=== PATIENT | male | born 1945 | race Two or more races ===

== ENCOUNTER 2020-05-21 07:05 | Inpatient (IN) | payer MEDICARE ==
[~2020-05-21] VITALS: Ht 185.4 cm; Wt 89.8 kg
[2020-05-21] VITALS (13 sets, daily range): BP systolic 119–153; BP diastolic 63–86
[~2020-05-21 07:05] MED LIST: BICALUTAMIDE50 MG ORAL; ceFAZolin sod 1 GM in NS 55 ML IVPB ONE
--- NOTE | 2020-05-21 09:52 | Anethesia Preoperative Eval ---
Anesthesia Pre-op PMH/ROS General Date of Evaluation: May 21, 2020 Time of Evaluation: 10:58 Anesthesiologist: Pablito ASA Score: ASA 3 Mallampati Score Class I : Soft palate, uvula, fauces, pillars visible Class II: Soft palate, uvula, fauces visible Class III: Soft palate, base of uvula visible Class IV: Only hard plate visible Mallampati Classification: Class II Surgeon: Maria Teresa Diagnosis: BPH Surgical Procedure: TURP Anesthesia History: none Family History: no anesthesia problems Allergies: Coded Allergies: No Known Allergies (Unverified , 05/21/20) Medications: see eMAR Patient NPO?: Yes Past Medical History Cardiovascular: Reports: HTN PSxH Narrative: TURP, L Foot Sx Anesthesia Pre-op Phys. Exam Physician Exam Last Vital Signs Date Time Temp Pulse Resp B/P (MAP) Pulse Ox O2 Delivery O2 Flow Rate FiO2 05/21/20 08:28 Room Air 05/21/20 08:24 97.0 74 18 141/72 (95) 96 Constitutional: NAD Neurologic: CN 2-12 intact Cardiovascular: RRR Respiratory: CTA Gastrointestinal: S/NT/ND Airway Exam Mallampati Score: Class II MO: limited ROM: limited Teeth: missing, intact Anesthesia Pre-op A/P Risk Assessment & Plan Assessment: ASA 3 Plan: GA, SED, GlideScope Status Change Before Surgery: No Pre-Antibiotics Dru Gram Ancef IV Given Within 1 Hr of Incision: Yes Time Given: 11:03 Hao Kenney MD May 21, 2020 09:52
[2020-05-21] MEDS ORDERED: oxyCODONE HCL/Acetaminophen 5/325mg ORAL PRN (10:00)
[2020-05-21] MEDS ORDERED: HYDROcodone/Acetamin 7.5/325 tab ORAL PRN (10:00)
[2020-05-21] MEDS ORDERED: Hydromorphone 0.5mg/0.5ml inj IVP PRN (10:00)
[2020-05-21] MEDS ORDERED: Midazolam 2mg/2ml Inj IVP PRN (10:00)
[2020-05-21] MEDS ORDERED: Atropine Sulfate 0.4mg/ml inj IVP PRN (10:00)
[2020-05-21] MEDS ORDERED: LR 1000ml 1,000 ML IVLG SCH (10:00)
[2020-05-21] MEDS ORDERED: Ketorolac 30mg Inj IV PRN ×2 (10:00)
[2020-05-21] MEDS ORDERED: DiphenhydrAMINE 50mg/ml Inj IVP PRN (10:00)
[2020-05-21] MEDS ORDERED: Metoclopramide 10mg/2ml Inj IVP PRN (10:00)
[2020-05-21] MEDS ORDERED: Labetalol 5mg/ml 20ml vial IV PRN (10:00)
[2020-05-21] MEDS ORDERED: LORazepam Inj 2mg/ml 1ml IV PRN (10:00)
[2020-05-21] MEDS ORDERED: Meperidine 25mg/1ml Inj (FOR RIGORS ONLY) IV PRN (10:00)
[2020-05-21] MEDS ORDERED: fentaNYL 100 mcg/2 mL IV PRN (10:00)
[2020-05-21] MEDS ORDERED: HYDROcodone/Acetamin 5/325 tab ORAL PRN (10:00)
[2020-05-21] MEDS ORDERED: Acetaminophen (Non formulary) 100 ML IV ONE (10:00)
--- NOTE | 2020-05-21 10:36 | Pre-Procedure Note/Attestation ---
Pre-Procedure Note/Attestation Complete Prior to Procedure Planned Procedure: not applicable Procedure Narrative: TURP Indications for Procedure Pre-Operative Diagnosis: bph prostate Cancer Attestation I attest that I discussed the nature of the procedure; its benefits; risks and complications; and alternatives (and the risks and benefits of such alternatives), prior to the procedure, with the patient (or the patient's legal field sales representative). I attest that, if there was a reasonable possibility of needing a blood transfusion, the patient (or the patient's legal field sales representative) was given the [facility] standardized written summary, pursuant to the [place] Blood Safety Act ([place] Health and Safety Code # 1645, as amended). I attest that I re-evaluated the patient just prior to the surgery and that there has been no change in the patient's H&P, except as documented below: Bhupinder Morel MD May 21, 2020 10:36
[2020-05-21] MEDS ORDERED: Lidocaine 1% MPF 10mg/ml 5ml ONE (10:49)
[2020-05-21] MEDS ORDERED: Sodium Chloride 10ml vial INJ ONE (10:49)
[2020-05-21] MEDS ORDERED: fentaNYL 100 mcg/2 mL IV ONE (10:51)
[2020-05-21] MEDS ORDERED: Midazolam 2mg/2ml Inj ONE (10:51)
[2020-05-21] MEDS ORDERED: NS Irrig 3000ml IRRIG ONE ×2 (11:00→11:29)
[2020-05-21] MEDS ORDERED: Rocuronium Bromide 50mg/5ml Inj IV ONE (11:00)
[2020-05-21] MEDS ORDERED: Neostigmine 1mg/ml 10ml Inj ONE (11:00)
[2020-05-21] MEDS ORDERED: NS Irrig 1000ml ONE (11:00)
--- NOTE | 2020-05-21 11:40 | Immediate Post-Op Evaluation ---
Immediate Post-Op Evalulation Immediate Post-Op Evalulation Procedure: TURP Date of Evaluation: May 21, 2020 Time of Evaluation: 12:30 IV Fluids: 800 LR Blood Products: 0 Estimated Blood Loss: 25 Urinary Output: 200 Blood Pressure Systolic: 166 Blood Pressure Diastolic: 91 Pulse Rate: 89 Respiratory Rate: 16 O2 Sat by Pulse Oximetry: 100 Temperature (Fahrenheit): 97.8 Pain Score (1-10): 2 Nausea: No Vomiting: No Complications 0 Patient Status: awake, reacts, patent, extubated, none Hydration Status: adequate Dru Gram Ancef IV Given Within 1 Hr of Incision: Yes Time Given: 11:03 Hao Kenney MD May 21, 2020 11:40
[2020-05-21] MEDS ORDERED: Glycopyrrolate 0.2mg/ml 1ml Vial ONE (11:58)
--- NOTE | 2020-05-21 12:05 | Brief Operative Note ---
Immediate Post Operative Note Operative Note Pre-op Diagnosis: bph prostate Cancer Procedure: turp Post-op Diagnosis: same Post-op Diagnosis: same as pre-op Surgeon: Devonte Morel Anesthesia: general Specimen: yes Complications: none Condition: stable Fluids: 1000 Estimated Blood Loss: minimal Implant(s) used?: No Bhupinder Morel MD May 21, 2020 12:05
[2020-05-21] MEDS ORDERED: Naloxone 0.4mg/ml Inj ONE (12:07)
[2020-05-21] MEDS ORDERED: HYDROmorphone 1mg/ml Carpuject IVP PRN (12:15)
[2020-05-21 13:26] LABS: EOSINOPHILS % (AUTO) 0.5 % (0.0-3.0); HEMATOCRIT 42.6 % (42.0-52.0); HEMOGLOBIN 13.7 G/DL (14.2-18.0); LYMPHOCYTES % (AUTO) 31.3 % (20.0-45.0); MEAN CORPUSCULAR VOLUME 92 FL (80-99); NEUTROPHILS % (AUTO) 62.2 % (45.0-75.0); PLATELET COUNT 115 K/UL (150-450); RED BLOOD COUNT 4.62 M/UL (4.70-6.10); RED CELL DISTRIBUTION WIDTH 14.9 % (11.6-14.8); WHITE BLOOD COUNT 5.1 K/UL (4.8-10.8)
[2020-05-21 13:35] LABS: CALCIUM 8.6 MG/DL (8.5-10.1); CREATININE 1.8 MG/DL (0.55-1.30); POTASSIUM 4.9 MMOL/L (3.5-5.1)
[2020-05-21] MEDS: Docusate 100mg cap ORAL SCH (17:27)
[2020-05-21] MEDS: D5 1/2NS w/KCl 20mEq 1,000 ML IV SCH (17:27)
[2020-05-21] MEDS: ceFAZolin 2gm/50ml Premix 50 ML IV SCH (18:03)
[2020-05-22] VITALS (7 sets, daily range): BP systolic 131–151; BP diastolic 42–78
[2020-05-22] MEDS: ceFAZolin 2gm/50ml Premix 50 ML IV SCH (02:53)
[2020-05-22] MEDS: D5 1/2NS w/KCl 20mEq 1,000 ML IV SCH (02:53)
[2020-05-22 06:20] LABS: BASOPHILS % (AUTO) 0.4 % (0.0-2.0); HEMATOCRIT 37.8 % (42.0-52.0); HEMOGLOBIN 13.3 G/DL (14.2-18.0); LYMPHOCYTES % (AUTO) 12.9 % (20.0-45.0); MEAN CORPUSCULAR VOLUME 87 FL (80-99); MONOCYTES % (AUTO) 4.1 % (1.0-10.0); NEUTROPHILS % (AUTO) 82.6 % (45.0-75.0); PLATELET COUNT 127 K/UL (150-450); RED BLOOD COUNT 4.37 M/UL (4.70-6.10); RED CELL DISTRIBUTION WIDTH 14.5 % (11.6-14.8); WHITE BLOOD COUNT 13.4 K/UL (4.8-10.8)
[2020-05-22 06:27] LABS: CALCIUM 8.7 MG/DL (8.5-10.1); CREATININE 1.8 MG/DL (0.55-1.30)
[2020-05-22] MEDS: Docusate 100mg cap ORAL SCH ×2 (08:31→18:00)
[2020-05-22] MEDS ORDERED: Levofloxacin 500mg tab ORAL SCH ×2 (10:00)
--- NOTE | 2020-05-22 13:10 | Consultation ---
History of Present Illness General Date patient seen: May 22, 2020 Present Illness HPI This is a 75-year-old male with history of BPH and prostate cancer per reports that recently had a TURP with Dr. Bhupinder Wen is currently postop recovering had some abdominal distention and discomfort. Has not been passing significant flatus or bowel movement. Decreased appetite. Surgery called to eval assist with care. Patient seen, patient by, chart reviewed. Leukocytosis noted. Case discussed with primary team. Allergies: Coded Allergies: No Known Allergies (Unverified , 05/21/20) COVID-19 Screening Contact w/high risk pt: No Experienced COVID-19 symptoms?: No Medication History Scheduled Bicalutamide* (Bicalutamide*), 50 MG ORAL DAILY, (Reported) Patient History History Provided By: Patient, Medical Record, PMD Healthcare decision maker Resuscitation status Advanced Directive on File Past Medical/Surgical History Past Medical/Surgical History: (1) Prostate CA (2) S/P TURP (status post transurethral resection of prostate) Review of Systems Review of Symptoms General ROS: no weight loss or fever Psychological ROS: no depression or mood changes, no memory loss Ophthalmic ROS: no visual changes or eye irritation ENT ROS: no nasal congestion, hearing loss, dizziness Allergy and Immunology ROS: no allergic symptoms or urticaria Hematological and Lymphatic ROS: no swollen glands, unusual bleeding or bruising Endocrine ROS: no polyuria, polydipsia, weight changes, temperature intolerance Respiratory ROS: no cough, shortness of breath, or wheezing Cardiovascular ROS: no chest pain or dyspnea on exertion Gastrointestinal ROS: + abdominal pain, bright red blood in stool. Musculoskeletal ROS: no myalgias or arthralgias Neurological ROS: no TIA or stroke symptoms Dermatological ROS: no new or changing skin lesions, rashes or pruritis Physical Exam Physical Exam General appearance: alert, cooperative, no distress, appears stated age Head: Normocephalic, without obvious abnormality, atraumatic Eyes: conjunctivae/corneas clear. PERRL, EOM's intact. Fundi benign Throat: Lips, mucosa, and tongue normal. Teeth and gums normal Neck: supple, symmetrical, trachea midline, no adenopathy, thyroid: not enla rged, symmetric, no tenderness/mass/nodules, no carotid bruit and no JVD Lungs: clear to auscultation bilaterally Heart: regular rate and rhythm, S1, S2 normal, no murmur, click, rub or gallop Abdomen: soft, non-tender. Bowel sounds normal. No masses, no organomegaly mild gaseous distention Extremities: extremities normal, atraumatic, no cyanosis or edema Pulses: 2+ and symmetric Skin: Skin color, texture, turgor normal. No rashes or lesions Neurologic: Grossly normal Last 24 Hour Vital Signs Date Time Temp Pulse Resp B/P (MAP) Pulse Ox O2 Delivery O2 Flow Rate FiO2 05/22/20 12:00 97.6 70 20 144/69 (94) 96 05/22/20 09:00 Room Air 05/22/20 08:00 98.0 70 18 139/76 (97) 97 05/22/20 03:17 98.1 67 18 142/59 (86) 95 05/22/20 00:00 96.8 72 18 131/63 (85) 95 05/21/20 21:00 Room Air 05/21/20 20:00 98.6 68 18 149/63 (91) 96 05/21/20 16:00 97.5 69 16 148/66 (93) 99 05/21/20 14:00 Nasal Cannula 2.0 05/21/20 14:00 98.0 97 18 137/67 (90) 97 05/21/20 13:45 97.6 56 17 142/68 100 Nasal Cannula 3 05/21/20 13:30 60 17 133/70 100 Nasal Cannula 3 05/21/20 13:15 57 18 139/70 100 Nasal Cannula 3 Intake and Output 0 05/21/20 05/22/20 19:00 07:00 Intake Total 2400 ml 1550 ml Output Total 225 ml 6900 ml Balance 2175 ml -5350 ml Intake Oral 1400 ml 600 ml IV Total 1000 ml 950 ml Output Urine Total 200 ml 6900 ml Estimated Blood Loss 25 ml # Voids 1 # Bowel Movements 3 Laboratory Tests Test 05/21/20 13:15 05/22/20 05:53 White Blood Count 5.1 K/UL (4.8-10.8) 13.4 K/UL (4.8-10.8) #H Red Blood Count 4.62 M/UL (4.70-6.10) L 4.37 M/UL (4.70-6.10) L Hemoglobin 13.7 G/DL (14.2-18.0) L 13.3 G/DL (14.2-18.0) L Hematocrit 42.6 % (42.0-52.0) 37.8 % (42.0-52.0) L Mean Corpuscular Volume 92 FL (80-99) 87 FL (80-99) Mean Corpuscular Hemoglobin 29.7 PG (27.0-31.0) 30.4 PG (27.0-31.0) Mean Corpuscular Hemoglobin Concent 32.3 G/DL (32.0-36.0) 35.1 G/DL (32.0-36.0) Red Cell Distribution Width 14.9 % (11.6-14.8) H 14.5 % (11.6-14.8) Platelet Count 115 K/UL (150-450) L 127 K/UL (150-450) L Mean Platelet Volume 8.6 FL (6.5-10.1) 8.9 FL (6.5-10.1) Neutrophils (%) (Auto) 62.2 % (45.0-75.0) 82.6 % (45.0-75.0) H Lymphocytes (%) (Auto) 31.3 % (20.0-45.0) 12.9 % (20.0-45.0) L Monocytes (%) (Auto) 5.0 % (1.0-10.0) 4.1 % (1.0-10.0) Eosinophils (%) (Auto) 0.5 % (0.0-3.0) 0.0 % (0.0-3.0) Basophils (%) (Auto) 1.0 % (0.0-2.0) 0.4 % (0.0-2.0) Sodium Level 140 MMOL/L (136-145) 139 MMOL/L (136-145) Potassium Level 4.9 MMOL/L (3.5-5.1) 5.0 MMOL/L (3.5-5.1) Chloride Level 108 MMOL/L (98-107) H 106 MMOL/L (98-107) Carbon Dioxide Level 26 MMOL/L (21-32) 25 MMOL/L (21-32) Anion Gap 6 mmol/L (5-15) 8 mmol/L (5-15) Blood Urea Nitrogen 20 mg/dL (7-18) H 23 mg/dL (7-18) H Creatinine 1.8 MG/DL (0.55-1.30) H 1.8 MG/DL (0.55-1.30) H Estimat Glomerular Filtration Rate 36.8 mL/min (>60) 36.8 mL/min (>60) Glucose Level 97 MG/DL (74-106) 164 MG/DL (74-106) H Calcium Level 8.6 MG/DL (8.5-10.1) 8.7 MG/DL (8.5-10.1) Height (Feet): 6 Height (Inches): 1.00 Weight (Pounds): 198 Medications Current Medications Medications (Trade) Dose Ordered Sig/Elias Route PRN Reason Start Time Stop Time Status Last Admin Dose Admin Docusate Sodium (Colace) 100 mg TWICE A DAY ORAL 05/21/20 18:00 06/20/20 17:59 05/22/20 08:31 Hydromorphone HCl (Dilaudid) 1 mg Q3H PRN IVP pain 05/21/20 12:15 05/28/20 12:14 Levofloxacin (Levaquin) 250 mg DAILY ORAL 05/23/20 09:00 05/30/20 08:59 Ondansetron HCl (Zofran) 4 mg Q6H PRN IVP Nausea & Vomiting 05/21/20 12:15 06/20/20 12:14 Temazepam (RestoriL) 7.5 mg DAILYPRN PRN ORAL Insomnia 05/21/20 12:15 05/28/20 12:14 Assessment/Plan Problem List: (1) Prostate CA Assessment & Plan: 75-year-old male with history of prostate cancer status post TURP currently having abdominal discomfort and pelvic pain. Leukocytosis. No nausea vomiting fever chills. Decreased appetite but tolerating some diet. Abdominal exam fairly benign only mild gaseous distended. Possible slight ileus definitely no obstruction unlikely any injury. Abdomen soft nontender. Labs likely reactive. Continue Lloyd in place. Okay for diet. Ambulate and out of bed. Shower. Patient complaining of a little discomfort around the penis with a Lloyd is inserted and some cream applied and given to patient. Will monitor over the course next 24 hours and plan this is to be discharged tomorrow. Continue diet as tolerated. Will follow recommendations. Thank you for allowing me to participate patient's care ICD Codes: C61 - Malignant neoplasm of prostate SNOMED: 787809323 (2) S/P TURP (status post transurethral resection of prostate) ICD Codes: Z90.79 - Acquired absence of other genital organ(s) SNOMED: 56388390, [id number], [id number] Mathieu Boyer May 22, 2020 13:10
--- NOTE | 2020-05-22 13:15 | 48 Hour Post Anesthesia Eval ---
Post Anesthesia Evaluation Procedure: TURP Date of Evaluation: May 22, 2020 Time of Evaluation: 13:14 Blood Pressure Systolic: 136 0: 72 Pulse Rate: 68 Respiratory Rate: 18 Temperature (Fahrenheit): 97.6 O2 Sat by Pulse Oximetry: 98 Airway: patent Nausea: No Vomiting: No Pain Intensity: 2 Hydration Status: adequate Cardiopulmonary Status: stable Mental Status/LOC: patient returned to baseline Follow-up Care/Observations: n/a Post-Anesthesia Complications: none Follow-up care needed: ready to discharge Boogie Heart MD May 22, 2020 13:15
--- NOTE | 2020-05-22 15:45 | Operative Note - Dictated ---
DATE OF OPERATION: 05/21/2020 PREOPERATIVE DIAGNOSES: Prostate cancer, BPH, urinary retention and recurrent UTIs. POSTOPERATIVE DIAGNOSES: Prostate cancer, BPH, urinary retention and recurrent UTIs. OPERATION: Transurethral resection of the prostate. OPERATED BY: Bhupinder Morel MD. ANESTHESIA: General. FINDINGS: Large prostate with large median lobe. INDICATIONS FOR SURGERY: The patient had high PSA and started on Lupron and Casodex, however, he has severe obstructing voiding symptoms emptying his bladder and nocturia x7 to 10. Treatment options were explained to him in great length including all potential complications. He signed the consent. DESCRIPTION OF PROCEDURE: He was brought to the operating room, placed in lithotomy position, prepped and draped in standard fashion. Under general anesthesia, transurethral resectoscope was introduced into the bladder and transurethral resection of all three parts of the prostate was done removing all the chips with the Educanon evacuator. Bladder was normal. Final resection was completed and verumontanum and sphincter was carefully preserved. Fulguration with electrocautery. The patient was transferred to recovery room. Sponge count and instrument count was correct. He tolerated the procedure well. No complications. Bhupinder Morel M.D. DR: PEEWEE JOB#: [id number] CC:
[2020-05-22] MEDS ORDERED: NAPROXEN500 M2 ORAL (20:01)
[2020-05-22] MEDS ORDERED: NEURONTIN300 MG ORAL (20:01)
[2020-05-22] MEDS ORDERED: FLOMAX0.4 MG ORAL (20:01)
[2020-05-23 06:41] LABS: BASOPHILS % (AUTO) 0.5 % (0.0-2.0); EOSINOPHILS % (AUTO) 0.3 % (0.0-3.0); HEMATOCRIT 41.7 % (42.0-52.0); HEMOGLOBIN 14.1 G/DL (14.2-18.0); LYMPHOCYTES % (AUTO) 28.7 % (20.0-45.0); MEAN CORPUSCULAR VOLUME 89 FL (80-99); MONOCYTES % (AUTO) 5.5 % (1.0-10.0); PLATELET COUNT 118 K/UL (150-450); RED BLOOD COUNT 4.66 M/UL (4.70-6.10); WHITE BLOOD COUNT 8.6 K/UL (4.8-10.8)
[2020-05-23 07:08] LABS: ALBUMIN 3.4 G/DL (3.4-5.0); BILIRUBIN,TOTAL 0.3 MG/DL (0.2-1.0); CALCIUM 8.9 MG/DL (8.5-10.1); CREATININE 1.5 MG/DL (0.55-1.30); POTASSIUM 4.7 MMOL/L (3.5-5.1)
[2020-05-23 08:00] VITALS: BP 130/72
[2020-05-23] MEDS: Docusate 100mg cap ORAL SCH (08:33)
[2020-05-23] MEDS ORDERED: COLACE100 MG ORAL (10:16)
[2020-05-23] MEDS ORDERED: NORCO 5-325 TA1 EAC1 ORAL (10:16)
[2020-05-23] MEDS ORDERED: LEVOFLOXACIN500 MG ORAL (10:17)
[2020-05-23 12:00] VITALS: BP 152/76
[2020-05-23] MEDS ORDERED: NS Irrig 1000ml ONE (14:01)
--- NOTE | 2020-05-23 16:18 | Surgery Progress Note ---
Surgery Progress Note Subjective Symptoms: improved, tolerating diet, voiding well, passing flatus, BM, pain decreased Objective Last 24 Hour Vital Signs Date Time Temp Pulse Resp B/P (MAP) Pulse Ox O2 Delivery O2 Flow Rate FiO2 05/23/20 12:00 98.6 69 20 152/76 (101) 95 05/23/20 09:00 Room Air 05/23/20 08:00 98.0 77 18 130/72 (91) 95 05/22/20 23:44 98.4 18 131/57 (81) 98 05/22/20 20:22 Room Air 05/22/20 19:41 98.1 20 151/78 (102) 97 I&O Intake and Output 05/22/20 05/23/20 18:59 06:59 Intake Total 800 ml 1120 ml Output Total 1200 ml 3200 ml Balance -400 ml -2080 ml Intake Oral 800 ml 1120 ml Output Urine Total 1200 ml 3200 ml Dressing: dry Wound: clean Abdomen: soft, non-tender, present bowel sounds Extremities: no edema, no tenderness, no cyanosis Laboratory Tests Test 05/23/20 05:05 White Blood Count 8.6 K/UL (4.8-10.8) Red Blood Count 4.66 M/UL (4.70-6.10) L Hemoglobin 14.1 G/DL (14.2-18.0) L Hematocrit 41.7 % (42.0-52.0) L Mean Corpuscular Volume 89 FL (80-99) Mean Corpuscular Hemoglobin 30.2 PG (27.0-31.0) Mean Corpuscular Hemoglobin Concent 33.7 G/DL (32.0-36.0) Red Cell Distribution Width 15.0 % (11.6-14.8) H Platelet Count 118 K/UL (150-450) L Mean Platelet Volume 8.7 FL (6.5-10.1) Neutrophils (%) (Auto) 65.0 % (45.0-75.0) Lymphocytes (%) (Auto) 28.7 % (20.0-45.0) Monocytes (%) (Auto) 5.5 % (1.0-10.0) Eosinophils (%) (Auto) 0.3 % (0.0-3.0) Basophils (%) (Auto) 0.5 % (0.0-2.0) Sodium Level 140 MMOL/L (136-145) Potassium Level 4.7 MMOL/L (3.5-5.1) Chloride Level 107 MMOL/L (98-107) Carbon Dioxide Level 24 MMOL/L (21-32) Anion Gap 9 mmol/L (5-15) Blood Urea Nitrogen 23 mg/dL (7-18) H Creatinine 1.5 MG/DL (0.55-1.30) H Estimat Glomerular Filtration Rate 45.4 mL/min (>60) Glucose Level 114 MG/DL (74-106) H Calcium Level 8.9 MG/DL (8.5-10.1) Total Bilirubin 0.3 MG/DL (0.2-1.0) Aspartate Amino Transf (AST/SGOT) 21 U/L (15-37) Alanine Aminotransferase (ALT/SGPT) 16 U/L (12-78) Alkaline Phosphatase 71 U/L (46-116) Total Protein 6.9 G/DL (6.4-8.2) Albumin 3.4 G/DL (3.4-5.0) Globulin 3.5 g/dL Albumin/Globulin Ratio 1.0 (1.0-2.7) Plan Problems: (1) Prostate CA Assessment & Plan: 75-year-old male with history of prostate cancer status post TURP currently having abdominal discomfort and pelvic pain. Leukocytosis. No nausea vomiting fever chills. Decreased appetite but tolerating some diet. Abdominal exam fairly benign only mild gaseous distended. Possible slight ileus definitely no obstruction unlikely any injury. Abdomen soft nontender. Labs likely reactive. Continue Canales in place. Okay for diet. Ambulate and out of bed. Shower. Patient complaining of a little discomfort around the penis with a Canales is inserted and some cream applied and given to patient. Will monitor over the course next 24 hours and plan this is to be discharged tomorrow. Continue diet as tolerated. Will follow recommendations. Thank you for allowing me to participate patient's care d/c home f/u outpatient canales bag rx written (2) S/P TURP (status post transurethral resection of prostate) Mathieu Boyer May 23, 2020 16:18
--- NOTE | 2020-05-25 11:11 | Discharge Summary ---
Discharge Summary Discharge Summary _ DATE OF ADMISSION: May 21, 2020 DATE OF DISCHARGE: May 23, 2020 SURGEON: Dr. Bhupinder Morel OPERATIONAL RISK MANAGER: Dr. Mathieu Boyer BRIEF HOSPITAL COURSE: Patient is a 75-year-old male with history of prostate cancer, BPH, urinary retention and recurrent UTI. Patient has had had high PSA and was started on Lupron and Cosentyx, however he continued to have severe obstructing voiding symptoms and incomplete emptying the bladder with nocturia x 7-10. He was admitted and underwent transurethral resection of the prostate. He tolerated procedure well. Surgery was uneventful. Post-operatively, patient was admitted for post-op care. He was placed on SCDs for DVT prophylaxis and was encouraged use of incentive spirometer. Patient was given pain management. He complained of abdominal discomfort and pelvic pain. There was no leukocytosis. No nausea, vomiting, fever or chills. He had decreased appetite but was tolerating diet. General surgeon was consulted and abdominal examination was benign with only mild gaseous distention. Diet was advanced. He was encouraged to ambulate out of bed. Patient was ambulating well with good pain control and was tolerating diet. Patient was eventually cleared for discharge home. FINAL DIAGNOSES: Prostate cancer, BPH, urinary retention and recurrent UTIs. OPERATION: Transurethral resection of the prostate. (Refer to Operative Report) DISCHARGE DISPOSITION: Patient was discharged home. DISCHARGE MEDICATIONS: Refer to Medication Reconciliation Sheet. DISCHARGE INSTRUCTIONS: Post-op instructions given. Follow-up in a week. I have been assigned to complete a DC summary on this account, I was not involved with the patient's management.--ANTWON Mcmullen Jacqueline Robles NP May 25, 2020 11:11
== END 2020-05-23 14:02 | disposition home or self-care (01) | DRG 713 ==
LOC: SDSOVERFLO 07:26 → 3E 15:08
PROC: 0VT08ZZ Resection of Prostate, Via Natural or Artificial Opening Endoscopic (ICD-10-PCS; principal; 2020-05-21 10:45)
DX: C61 Malignant neoplasm of prostate (principal); N13.8 Other obstructive and reflux uropathy; N40.1 Benign prostatic hyperplasia with lower urinary tract symptoms; R33.8 Other retention of urine
CPT/HCPCS: 36415; 80048; 80053; 85025; 86850; 86900; 86901; 87081; 94003; 94150; J2250; J2405; J2710; U0002